=== PATIENT | male | born 1960 | race Caucasian/White ===

== ENCOUNTER 2023-01-12 09:34 | Emergency (ER) | payer MEDICARE ==
--- NOTE | 2023-01-12 09:43 | ERPHSYRPT ---
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 He was found to have a significantly elevated blood pressure and he had associated chest pain and headache. Patient states that the headache has been present intermittently for few days but his chest pain occurred at 630 this morning. It is described as an ache and pressure of the entire chest bilaterally with pain into the left upper extremity. Patient has no diagnosed cardiac/coronary artery disease that he is aware of. He does have a history of high blood pressure. Patient states he did take his by blood pressure medicine this morning. Timing/Duration: today Activities at Onset: none Quality: aching, pressure Location: other (Bilateral chest) Chest Pain Radiation: arm (Left arm) Severity of Pain-Max: mild Severity of Pain-Current: mild Modifying Factors: Improves With: nothing Associated Symptoms: denies symptoms Prior Chest Pain/Cardiac Workup: no prior chest pain, no prior cardiac workup Nitro Today/Relief: no nitro taken today Aspirin Treatment Today: no aspirin today Allergies/Adverse Reactions: No Known Drug Allergies Allergy (Unverified 01/12/23 09:42) Home Medications: Amlodipine Besylate 5 mg [Norvasc 5 mg] 5 mg PO DAILY 01/12/23 [History] Duloxetine HCl 30 mg [Cymbalta 30 MG Capsule] 30 mg PO DAILY 01/12/23 [History] Escitalopram Oxalate [Lexapro] 10 mg PO DAILY 01/12/23 [History] Gabapentin [Neurontin ] 300 mg PO BID 01/12/23 [History] Hydrochlorothiazide 25 mg [hydroDIURIL 25 MG] 12.5 mg PO DAILY 01/12/23 [History] Insulin Glargine,Hum.rec.anlog [Basaglar Kwikpen U-100] 10 unit SQ DAILY 01/12/23 [History] Meloxicam 15 mg [Meloxicam 15 MG] 15 mg PO DAILY 01/12/23 [History] Metformin HCl 500 mg [Glucophage 500 MG] 500 mg PO BIDWM 01/12/23 [History] Omeprazole 20 mg PO DAILY 01/12/23 [History] Propranolol HCl [Propranolol HCl ER] 120 mg PO DAILY 01/12/23 [History] Rosuvastatin Calcium 20 mg PO DAILY 01/12/23 [History] Trazodone HCl 50 mg [Desyrel 50 mg] 50 mg PO HS 01/12/23 [History] lisinopriL [Zestril] 40 mg PO DAILY 01/12/23 [History] Travel Risk - International Travel Have you traveled outside of the country in past 3 weeks: No - Coronavirus Screening Are you exhibiting any of the following symptoms?: No Close contact with a COVID-19 positive Pt in past 14-21 Days: No - Review of Systems Constitutional: No Symptoms Eyes: No Symptoms Ears, Nose, & Throat: No Symptoms Respiratory: No Symptoms Cardiac: Chest Pain Abdominal/Gastrointestinal: No Symptoms Genitourinary Symptoms: No Symptoms Musculoskeletal: No Symptoms Skin: No Symptoms Neurological: No Symptoms, Headache Psychological: No Symptoms Endocrine: No Symptoms Hematologic/Lymphatic: No Symptoms Immunological/Allergic: No Symptoms All Other Systems: Reviewed and Negative - Past Medical History Pertinent Past Medical History: Yes - Past Surgical History Past Surgical History: Yes - Nursing Vital Signs Nursing Vital Signs: Initial Vital Signs Temperature 97.6 F 01/12/23 09:45 Pulse Rate 57 L 01/12/23 09:45 Respiratory Rate 16 01/12/23 09:45 Blood Pressure 215/90 01/12/23 09:45 O2 Sat by Pulse Oximetry 96 01/12/23 09:45 Pain Scale Pain Intensity 0 - Physical Exam General Appearance: no apparent distress, alert, anxiety, obese Eye Exam: PERRL/EOMI, eyes nml inspection Ears, Nose, Throat Exam: normal ENT inspection, moist mucous membranes Neck Exam: normal inspection, non-tender, supple, full range of motion Respiratory Exam: normal breath sounds, chest tenderness, lungs clear, airway intact, No respiratory distress Cardiovascular Exam: regular rate/rhythm, normal heart sounds, normal peripheral pulses Gastrointestinal/Abdomen Exam: soft, normal bowel sounds, No tenderness Rectal Exam: not done Back Exam: normal inspection, normal range of motion, No CVA tenderness, No vertebral tenderness Extremity Exam: normal inspection, normal range of motion, pelvis stable Neurologic Exam: alert, oriented x 3, cooperative, 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, nor mal mood/affect, nml cerebellar function, nml station & gait, sensation nml Skin Exam: normal color, warm, dry Lymphatic Exam: No adenopathy SpO2 Interpretation: normal O2 Delivery: Room Air - Course Nursing assessment & vital signs reviewed: Yes EKG Interpreted by Me: RATE (54), Sinus Rhythm, LAFB, Right Bundle Branch Block, Other (No acute ischemic changes on today's twelve-lead EKG.) Ordered Tests: Active Orders 24 hr Category Date Time Status Hogshead Liner STAT Care 01/12/23 09:57 Active EKG-ER Only STAT Care 01/12/23 09:57 Active IV Insertion STAT Care 01/12/23 09:57 Active Pulse Oximetry (ED) STAT Care 01/12/23 09:57 Active CHEST 1 VIEW (PORTABLE) Stat Exams 01/12/23 09:57 Completed HEAD WITHOUT CONTRAST [CT] Stat Exams 01/12/23 09:58 Completed CBC W DIFF Stat Lab 01/12/23 09:50 Completed CMP Stat Lab 01/12/23 09:50 Completed PROTIME WITH INR Stat Lab 01/12/23 09:50 Completed TROPONIN Q4H Lab 01/12/23 09:50 Completed TROPONIN Q4H Lab 01/12/23 13:03 Completed TROPONIN Q4H Lab 01/12/23 15:50 Ordered Medication Summary Discontinued Medications Generic Name Dose Route Start Last Admin Trade Name Henryq PRN Reason Stop Dose Admin Aspirin 324 mg 01/12/23 09:57 01/12/23 10:14 Aspirin 81 Mg Tab.Chew PO 01/12/23 09:58 324 mg STAT ONE Administration Aspirin Confirm 01/12/23 10:12 Aspirin 81 Mg Tab.Chew Administered 01/12/23 10:13 Dose 324 mg .ROUTE .STK-MED ONE Morphine Sulfate 4 mg 01/12/23 09:57 01/12/23 10:15 Morphine Sulfate 4 Mg/Ml Injection IV 01/12/23 09:58 4 mg STAT ONE Administration Morphine Sulfate Confirm 01/12/23 10:13 Morphine Sulfate 4 Mg/Ml Injection Administered 01/12/23 10:14 Dose 4 mg .ROUTE .STK-MED ONE Nitroglycerin 0.4 mg 01/12/23 09:57 01/12/23 10:14 Nitroglycerin 0.4 Mg (Ed) 0.4 Mg Tab.Subl SL 01/12/23 09:58 0.4 mg STAT ONE Administration Nitroglycerin Confirm 01/12/23 10:12 Nitroglycerin 0.4 Mg (Ed) 0.4 Mg Tab.Subl Administered 01/12/23 10:13 Dose 0.4 mg SL .STK-MED ONE Ondansetron HCl 4 mg 01/12/23 09:57 01/12/23 10:14 Ondansetron Hcl 4 Mg/2 Ml Vial IV 01/12/23 09:58 4 mg STAT ONE Administration Ondansetron HCl Confirm 01/12/23 10:11 Ondansetron Hcl 4 Mg/2 Ml Vial Administered 01/12/23 10:12 Dose 4 mg .ROUTE .STK-MED ONE Lab/Rad Data: Laboratory Result Diagrams 01/12/23 09:50 01/12/23 09:50 Laboratory Results 01/12/23 01/12/23 01/12/23 Range/Units 13:03 09:50 09:50 WBC (4.0-10.5) x10^3/uL RBC (4.1-5.6) x10^6/uL Hgb (12.5-18.0) g/dL Hct (42-50) % MCV (78-100) fL MCH (26-32) pg MCHC (32-36) g/dL RDW (11.5-14.0) % Plt Count (150-450) x10^3/uL MPV (7.5-11.0) fL Gran % (36.0-66.0) % Immature Gran % (Auto) (0.00-0.4) % Nucleat RBC Rel Count (0.00-0.1) % Eos # (Auto) (0-0.5) x10^3/uL Immature Gran # (Auto) (0.00-0.03) x10^3u/L Absolute Lymphs (auto) (1.0-4.6) x10^3/uL Absolute Monos (auto) (0.0-1.3) x10^3/uL Absolute Nucleated RBC (0.00-0.01) x10^3u/L Lymphocytes % (24.0-44.0) % Monocytes % (0.0-12.0) % Eosinophils % (0.00-5.0) % Basophils % (0.0-0.4) % Absolute Granulocytes (1.4-6.9) x10^3/uL Basophils # (0-0.4) x10^3/uL PT 10.3 (9.4-12.5) SECONDS INR 0.94 (0.8-3.0) Sodium (137-145) mmol/L Potassium (3.5-5.1) mmol/L Chloride (98-107) mmol/L Carbon Dioxide (22-30) mmol/L Anion Gap (5-15) MEQ/L BUN (9-20) mg/dL Creatinine (0.66-1.25) mg/dL Estimated GFR ML/MIN Glucose (74-106) mg/dL Calcium (8.4-10.2) mg/dL Total Bilirubin (0.2-1.3) mg/dL AST (17-59) U/L ALT (0-50) U/L Alkaline Phosphatase (38-126) U/L Troponin I 0.031 0.029 (0.000-0.034) ng/mL Serum Total Protein (6.3-8.2) g/dL Albumin (3.5-5.0) g/dL 01/12/23 01/12/23 Range/Units 09:50 09:50 WBC 8.2 (4.0-10.5) x10^3/uL RBC 4.52 (4.1-5.6) x10^6/uL Hgb 13.1 (12.5-18.0) g/dL Hct 40.4 L (42-50) % MCV 89.4 (78-100) fL MCH 29.0 (26-32) pg MCHC 32.4 (32-36) g/dL RDW 13.4 (11.5-14.0) % Plt Count 389 (150-450) x10^3/uL MPV 10.3 (7.5-11.0) fL Gran % 60.2 (36.0-66.0) % Immature Gran % (Auto) 0.5 H (0.00-0.4) % Nucleat RBC Rel Count 0.0 (0.00-0.1) % Eos # (Auto) 0.25 (0-0.5) x10^3/uL Immature Gran # (Auto) 0.04 H (0.00-0.03) x10^3u/L Absolute Lymphs (auto) 2.12 (1.0-4.6) x10^3/uL Absolute Monos (auto) 0.77 (0.0-1.3) x10^3/uL Absolute Nucleated RBC 0.00 (0.00-0.01) x10^3u/L Lymphocytes % 25.9 (24.0-44.0) % Monocytes % 9.4 (0.0-12.0) % Eosinophils % 3.1 (0.00-5.0) % Basophils % 0.9 (0.0-0.4) % Absolute Granulocytes 4.93 (1.4-6.9) x10^3/uL Basophils # 0.07 (0-0.4) x10^3/uL PT (9.4-12.5) SECONDS INR (0.8-3.0) Sodium 141 (137-145) mmol/L Potassium 4.0 (3.5-5.1) mmol/L Chloride 109 H (98-107) mmol/L Carbon Dioxide 25 (22-30) mmol/L Anion Gap 12.0 (5-15) MEQ/L BUN 18 (9-20) mg/dL Creatinine 0.97 (0.66-1.25) mg/dL Estimated GFR 88.3 ML/MIN Glucose 119 H (74-106) mg/dL Calcium 9.7 (8.4-10.2) mg/dL Total Bilirubin 0.30 (0.2-1.3) mg/dL AST 39 (17-59) U/L ALT 50 (0-50) U/L Alkaline Phosphatase 92 (38-126) U/L Troponin I (0.000-0.034) ng/mL Serum Total Protein 7.5 (6.3-8.2) g/dL Albumin 4.7 (3.5-5.0) g/dL - Progress Progress: improved Air Movement: good Progress Note: 01/12/23 10:05 Patient's medical issue is 1 of moderate complexity. Level of complexity in the work-up performed is based on review the patient's past medical history, review the patient's medication list, review the patient's drug allergy list, history present as and physical findings on examination. This patient's medical work-up includes placement of intravenous line, twelve-lead EKG, troponin level, CT scan of the head, CBC, CMP, chest x-ray, and fusion of 4 mg intravenous Zofran and 4 mg of intravenous morphine. Patient is given 1 sublingual 0.4 mg nitroglycerin, patient is provided with 325 mg baby aspirin orally. 01/12/23 10:[address] scan of the head without contrast was interpreted by the radiologist. This is a normal study with no acute abnormalities. I reviewed the impression. Chest x-ray was interpreted by the radiologist. I reviewed the impression. The impression is no acute cardiopulmonary abnormalities. 01/12/23 13:13 Repeat 3-hour twelve-lead EKG still interpreted by me. Heart rate is 49 bpm. There is a rhythm sinus bradycardia. There is borderline TX prolonged interval. No other acute changes when compared to the earlier twelve-lead EKG. There is no evidence of any acute ischemic changes. 01/12/23 13:44 This patient's calculated heart score is 3. I calculated the heart score at 0- hour and again at 3-hour. Patient currently has no chest pain. I will discuss with him the option of admitting him for observation or transfer to home. His troponin levels are within normal limits. The first was 0.029 and the second was 0.031. Both twelve-lead EKGs did not show any acute ischemic changes. Blood Culture(s) Obtained: No Antibiotics given: No Counseled pt/family regarding: lab results, diagnosis, need for follow-up, rad results Medical Desision Making - Diagnostic Testing Diagnostic test were ordered, analyzed, and reviewed by me: Yes Radiological Interpretation: Reviewed by me, Teleradiologist Report - Risk of complications Low Risk: Low risk of morbidity from additional dx testing or treatment - Departure Departure Disposition: Home Clinical Impression: Nonspecific chest pain, Hypertension Condition: Stable Critical Care Time: No Referrals: VALENTIN OLSON NP, RN [Primary Care Provider] - Follow up/PCP as directed
[2023-01-12 09:47] VITALS: TEMP 97.6
[2023-01-12] MEDS ORDERED: Zofran 4 MG/2 ML VIAL IV ONE (09:57)
[2023-01-12] MEDS ORDERED: MORPHINE SULFATE 4 MG INJ IV ONE (09:57)
[2023-01-12] MEDS ORDERED: BABY ASPIRIN 81 MG CHEW PO ONE (09:57)
[2023-01-12] MEDS ORDERED: Nitrostat 0.4 MG (ED) SL ONE ×2 (09:57→10:12)
[2023-01-12] MEDS ORDERED: Zofran 4 MG/2 ML VIAL ONE (10:11)
[2023-01-12] MEDS ORDERED: BABY ASPIRIN 81 MG CHEW ONE (10:12)
[2023-01-12] MEDS ORDERED: MORPHINE SULFATE 4 MG INJ ONE (10:13)
[2023-01-12 10:17] LABS: Absolute Neutrophil Ct (ANC) 4.93 x10^3/uL (1.4-6.9); BASOPHIL % 0.9 % (0.0-0.4); Basophil (Absolute #) 0.07 x10^3/uL (0-0.4); Eosinophil % 3.1 % (0.00-5.0); Eosinophil (Absolute #) 0.25 x10^3/uL (0-0.5); Hematocrit 40.4 % (42-50); Hemoglobin 13.1 g/dL (12.5-18.0); IMMATURE GRAN # 0.04 x10^3u/L (0.00-0.03); IMMATURE GRAN % 0.5 % (0.00-0.4); Lymphocyte (Absolute #) 2.12 x10^3/uL (1.0-4.6); Lymphocytes % 25.9 % (24.0-44.0); Mean Cell Volume 89.4 fL (78-100); Mean Corpuscular Hgb Concent. 32.4 g/dL (32-36); Mean Platelet Volume 10.3 fL (7.5-11.0); Monocyte (Absolute #) 0.77 x10^3/uL (0.0-1.3); Monocytes % 9.4 % (0.0-12.0); Neutrophil % 60.2 % (36.0-66.0); Platelet Count 389 x10^3/uL (150-450); Red Blood Count 4.52 x10^6/uL (4.1-5.6); Red Cell Distribution Width 13.4 % (11.5-14.0); White Blood Count 8.2 x10^3/uL (4.0-10.5)
--- NOTE | 2023-01-12 10:25 | XRAY ---
Indication: Headache. Multiple contiguous axial images obtained through the head without contrast. Comparison: None Normal appearing brain parenchyma, ventricles, and bony calvarium for patient's age. Visualized paranasal sinuses and mastoid air cells are clear. Impression: Normal CT head without contrast exam.
--- NOTE | 2023-01-12 10:25 | XRAY ---
Indication: Chest pain. Comparison: None Portable chest demonstrates normal heart and lungs with incidental left base calcified granuloma. Bony thorax intact with mild degenerative changes and cervical fusion hardware. Impression: Nonacute chest with chronic features.
[2023-01-12 10:29] LABS: ALBUMIN 4.7 g/dL (3.5-5.0); BILIRUBIN,TOTAL 0.3 mg/dL (0.2-1.3); Calcium 9.7 mg/dL (8.4-10.2); Creatinine 1 0.97 mg/dL (0.66-1.25); EST GLOMERULAR FILTRATION RATE 88.3 ML/MIN; Total Protein 7.5 g/dL (6.3-8.2)
[2023-01-12 10:30] LABS: INR 0.94 (0.8-3.0); PROTIME 10.3 SECONDS (9.4-12.5)
[2023-01-12 14:06] VITALS: BP 176/70; PULSE 50; RESP 15; O2SAT 94
== END 2023-01-12 14:14 | disposition home or self-care (01) ==
LOC: ED 09:34
DX: R07.9 Chest pain, unspecified (principal); I10 Essential (primary) hypertension; R51.9 Headache, unspecified; Z79.4 Long term (current) use of insulin; Z79.84 Long term (current) use of oral hypoglycemic drugs; Z79.899 Other long term (current) drug therapy
CPT/HCPCS: 36000; 36415; 70450; 71045; 80053; 84484; 85025; 85610; 93005; 93041; 94760; 96374; 96375; 99284; J2270; J2405; A9270-GY

== ENCOUNTER 2023-02-09 15:50 | Emergency (ER) | payer MEDICARE ==
[2023-02-09 15:53] VITALS: RESP 18; TEMP 97; O2SAT 97
[2023-02-09] MEDS ORDERED: BACIGUENT PACKET TP ONE (16:16)
[2023-02-09] MEDS ORDERED: BACIGUENT PACKET ONE (16:23)
--- NOTE | 2023-02-09 16:31 | ERPHSYRPT ---
- History of Present Illness Time Seen by Provider: 02/09/23 16:25 Source: patient Exam Limitations: no limitations Patient Subjective Stated Complaint: here for to be seen for possible behavioral issues. family thinks he is getting scamed. he wants to send people money. Triage Nursing Assessment: pt alert, walked in with cane, resp easy, skin w/d/p. pt angry as talks about phone and sending money, pt has wound to left foot before base of foot , skin sloughing Physician History: Patient 62-year-old male presents to our ED as a referral from primary care doctor for an evaluation. Patient is communicating with someone online who claims to be a celebrity. Family does not believe patient is an actual celebrity and feels he is being scammed. Patient has no homicidal suicidal ideation. Patient denies depressed mood. No hallucinations. However as patient was disrobing for a thorough physical examination we observed patient to have a open wound on the medial aspect of the left first MTP. No drainage no lymphangitis. Patient has no fever. Patient had no complaints regarding his wound. However he states this started out as a blister. The blister opened and now there is a granular base observed on today's exam. Patient's daughter is at the bedside. Patient expresses frustration as his daughter told him he was coming to the hospital for a blood draw and was directed to the ER instead. Patient feels his daughter deceived him and is upset. Daughter states she deceived him because he would not have come to the hospital otherwise. Patient and daughter voiced no other complaints or concerns at this time. Portions of this note were created with voice recognition technology. There may be grammatical, spelling, punctuation or sound alike errors Timing/Duration: today Severity: moderate Modifying Factors: Improves With: nothing Associated Symptoms: denies symptoms Allergies/Adverse Reactions: No Known Drug Allergies Allergy (Verified 02/09/23 15:52) Home Medications: Amlodipine Besylate 5 mg [Norvasc 5 mg] 5 mg PO DAILY 01/12/23 [History] Duloxetine HCl 30 mg [Cymbalta 30 MG Capsule] 30 mg PO DAILY 01/12/23 [History] Escitalopram Oxalate [Lexapro] 10 mg PO DAILY 01/12/23 [History] Gabapentin [Neurontin ] 300 mg PO BID 01/12/23 [History] Hydrochlorothiazide 25 mg [hydroDIURIL 25 MG] 12.5 mg PO DAILY 01/12/23 [History] Insulin Glargine,Hum.rec.anlog [Basaglar Kwikpen U-100] 10 unit SQ DAILY 01/12/23 [History] Meloxicam 15 mg [Meloxicam 15 MG] 15 mg PO DAILY 01/12/23 [History] Metformin HCl 500 mg [Glucophage 500 MG] 500 mg PO BIDWM 01/12/23 [History] Omeprazole 20 mg PO DAILY 01/12/23 [History] Propranolol HCl [Propranolol HCl ER] 120 mg PO DAILY 01/12/23 [History] Rosuvastatin Calcium 20 mg PO DAILY 01/12/23 [History] Trazodone HCl 50 mg [Desyrel 50 mg] 50 mg PO HS 01/12/23 [History] lisinopriL [Zestril] 40 mg PO DAILY 01/12/23 [History] Hx Tetanus, Diphtheria Vaccination/Date Given: No Hx Influenza Vaccination/Date Given: Yes Hx Pneumococcal Vaccination/Date Given: No Immunizations Up to Date: Yes Travel Risk - International Travel Have you traveled outside of the country in past 3 weeks: No - Coronavirus Screening Are you exhibiting any of the following symptoms?: No Close contact with a COVID-19 positive Pt in past 14-21 Days: No - Vaccine Status Have you recieved a Covid-19 vaccination: Yes 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: [employer] - Vaccination Dates Date of 2cond Vaccination (if applicable): 2020 - Review of Systems Constitutional: No Symptoms, No Fever, No Chills Eyes: No Symptoms Ears, Nose, & Throat: No Symptoms Respiratory: No Symptoms, No Cough, No Dyspnea Cardiac: No Symptoms, No Chest Pain, No Edema, No Syncope Abdominal/Gastrointestinal: No Symptoms, No Abdominal Pain, No Nausea, No Vomiting, No Diarrhea Genitourinary Symptoms: No Symptoms, No Dysuria Musculoskeletal: No Symptoms, No Back Pain, No Neck Pain Skin: Other (There is a 2 x 2 centimeter open wound that appears to have began as a blister. The blister opened and now there is a granular base. No lymphangitis.), No Rash Neurological: No Symptoms, No Dizziness, No Focal Weakness, No Sensory Changes Psychological: No Symptoms Endocrine: No Symptoms Hematologic/Lymphatic: No Symptoms Immunological/Allergic: No Symptoms All Other Systems: Reviewed and Negative - Past Medical History Pertinent Past Medical History: Yes Neurological History: Peripheral Neuropathy, Stroke Cardiac History: High Cholesterol, Hypertension Endocrine Medical History: Diabetes Type II - Past Surgical History Past Surgical History: Yes Gastrointestinal: Cholecystectomy Musculoskeletal: Orthopedic Surgery Other Surgical History: back,wrist,ankle - Social History Smoking Status: Former smoker Exposure to second hand smoke: Yes Drug Use: marijuana Patient Lives Alone: No - Nursing Vital Signs Nursing Vital Signs: Initial Vital Signs Temperature 97.0 F 02/09/23 15:53 Pulse Rate 63 02/09/23 15:53 Respiratory Rate 18 02/09/23 15:53 Blood Pressure 187/98 02/09/23 15:53 O2 Sat by Pulse Oximetry 97 02/09/23 15:53 Pain Scale Pain Intensity 9 - Physical Exam General Appearance: no apparent distress, alert Eye Exam: PERRL/EOMI, eyes nml inspection Ears, Nose, Throat Exam: normal ENT inspection, TMs normal, pharynx normal, moist mucous membranes Neck Exam: normal inspection, non-tender, supple, full range of motion Respiratory Exam: normal breath sounds, lungs clear, airway intact, No respiratory distress Cardiovascular Exam: regular rate/rhythm, normal heart sounds, normal peripheral pulses Gastrointestinal/Abdomen Exam: soft, normal bowel sounds, No tenderness, No mass Back Exam: normal inspection, normal range of motion, No CVA tenderness, No vertebral tenderness Extremity Exam: normal inspection, normal range of motion, pelvis stable Neurologic Exam: alert, oriented x 3, cooperative, normal mood/affect, nml cerebellar function, nml station & gait, sensation nml, No motor deficits Skin Exam: normal color, warm, dry, No rash Lymphatic Exam: No adenopathy SpO2 Interpretation: normal SpO2: 97 O2 Delivery: Room Air - Course Nursing assessment & vital signs reviewed: Yes Ordered Tests: Medication Summary Discontinued Medications Generic Name Dose Route Start Last Admin Trade Name Freq PRN Reason Stop Dose Admin Bacitracin Zinc 0.9 each 02/09/23 16:16 Bacitracin Packet 1 Each Pckt TP 02/09/23 16:17 STAT ONE - Progress Progress Note: Patient 62-year-old male presents to our ED for evaluation as a referral for possible psychiatric condition. No active psychiatric condition observed. No homicidal or suicidal ideation. No hallucinations. Patient states he has a relationship with someone over the Internet. He states that he finds it entertaining. Incidentally observed was a wound to the left foot. Case discussed with Dr. Renee of podiatry. We will apply bacitracin ointment. He will follow-up with patient on Monday for reassessment. No indication for further workup. Will discharge home. Patient agrees to follow-up as indicated. Patient was also given a referral for outpatient psychological services as needed. Portions of this note were created with voice recognition technology. There may be grammatical, spelling, punctuation or sound alike errors Complexity of problems addressed is moderate acute complicated Complexity of data reviewed and analyzed is moderate. Management discussed with podiatry Dr. Renee. Risk of complication and or risk of morbidity/mortality of patient management is moderate. Patient will apply topical bacitracin. He declined a prescription as the antibiotic ointment can be picked up at a local pharmacy [id number]. Vital stable. Time spent to discharge patient is approximately 15 minutes. Plan of care established for shared decision making. No social determinants of health present impede follow-up. 02/09/23 16:[address] Other (Case discussed with Dr. Renee podiatry at 4:20 PM.) Counseled pt/family regarding: diagnosis, need for follow-up - Departure Departure Disposition: Home Clinical Impression: Encounter for medical screening examination, Wound, open, foot Condition: Stable Critical Care Time: No Referrals: VALENTIN OLSON NP, RN [Primary Care Provider] - Follow up/PCP as directed Additional Instructions: Discharge/Care Plan [facility]AIDAM[facility] HOUSER was seen on 02/09/23 in the Emergency Room. The patient was counseled regarding Diagnosis,Lab results, Imaging studies, need for follow up and when to return to the Emergency Room. Prescriptions given: Discharge Note I have spoken with the patient and/or caregivers. I have explained the patient's condition, diagnosis and treatment plan based on the information available to me at this time. I have answered the patient's and/or caregiver's questions and addressed any concerns. The patient and/or caregivers have as good understanding of the patient's diagnosis, condition and treatment plan as can be expected at this point. The vital signs have been stable. The patient's condition is stable and appropriate for discharge from the emergency department. The patient will pursue further outpatient evaluation with the primary care physician or other designated or consulting physician as outlined in the discharge instructions. The patient and/or caregivers are agreeable to this plan of care and follow-up instructions have been explained in detail. The patient and/or caregivers have received these instruction. The patient/and or caregivers are aware that any significant change in condition or worsening of symptoms should prompt an immediate return to this or the closest emergency department or call 911.
[2023-02-09 16:47] VITALS: BP 190/87; PULSE 97
== END 2023-02-09 16:47 | disposition home or self-care (01) ==
LOC: ED 15:50
DX: Z71.1 Person with feared health complaint in whom no diagnosis is made (principal); S91.302A Unspecified open wound, left foot, initial encounter; E78.5 Hyperlipidemia, unspecified; I10 Essential (primary) hypertension; E11.42 Type 2 diabetes mellitus with diabetic polyneuropathy; Z79.4 Long term (current) use of insulin; Z79.84 Long term (current) use of oral hypoglycemic drugs; Z79.899 Other long term (current) drug therapy
CPT/HCPCS: 99283; A9270-GY